=== PATIENT | female | born 1970 ===

== ENCOUNTER 2020-06-08 14:04 | Emergency (ER) | payer MEDICAID, OTHER ==
[~2020-06-08] VITALS: Ht 149.9 cm; Wt 83.5 kg
[2020-06-08 14:10] VITALS: BP 177/84
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
== END 2020-06-08 15:50 | disposition home or self-care (01) ==
LOC: ED 15:40
DX: R09.89 Other specified symptoms and signs involving the circulatory and respiratory systems (principal)
CPT/HCPCS: 36415; 87635; 99281; 99283

== ENCOUNTER 2020-06-08 18:01 | Emergency (ER) | payer OTHER ==
[~2020-06-08] VITALS: Ht 149.9 cm; Wt 83.6 kg
[2020-06-08 18:19] VITALS: BP 164/83
== END 2020-06-08 20:23 | disposition left against medical advice (07) ==
LOC: ED 20:10
DX: R51 Headache (principal); Y08.89XA Assault by other specified means, initial encounter; Y93.89 Activity, other specified; Y92.89 Other specified places as the place of occurrence of the external cause; Y99.8 Other external cause status
CPT/HCPCS: 99281

== ENCOUNTER 2020-06-08 23:39 | Emergency (ER) | payer OTHER ==
[~2020-06-08] VITALS: Ht 149.9 cm; Wt 83.4 kg
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
[2020-06-09] MEDS ORDERED: KETOROLAC 30 MG/1 ML ONE (00:19)
[2020-06-09] MEDS ORDERED: ACETAMINOPHEN 500 MG TABLET ONE (00:20)
[2020-06-09] MEDS ORDERED: KETOROLAC 30 MG/1 ML IM ONE (00:30)
[2020-06-09] MEDS ORDERED: ACETAMINOPHEN 325 MG TABLET PO ONE (00:30)
--- NOTE | 2020-06-09 00:49 | NUR ---
PT CONNECTED TO BP AND O2 MONITORS.
[2020-06-09 01:42] VITALS: BP 124/71
== END 2020-06-09 01:46 | disposition home or self-care (01) ==
LOC: ED 06-09 00:44
DX: S09.90XA Unspecified injury of head, initial encounter (principal); Y08.89XA Assault by other specified means, initial encounter; Y93.89 Activity, other specified; Y92.098 Other place in other non-institutional residence as the place of occurrence of the external cause; Y99.8 Other external cause status
CPT/HCPCS: 70450; 96372; 99284; J1885

== ENCOUNTER 2020-06-11 16:05 | Emergency (ER) | payer OTHER ==
[~2020-06-11] VITALS: Ht 149.9 cm; Wt 81.9 kg
[2020-06-11 16:32] VITALS: BP 164/99
--- NOTE | 2020-06-11 18:13 | NUR ---
ANDREA RN: ASSUMED CARE FOR DISCHARGE ONLY. EXPLAINED TO SELF ISOLATED UNITL RECEIVES A CALL FROM [facility] Patient/Caregiver given discharge instructions and they have confirmed that they understand the instructions. Patient ambulatory with steady gait.
== END 2020-06-11 18:27 | disposition home or self-care (01) ==
LOC: ED 18:19
DX: G43.909 Migraine, unspecified, not intractable, without status migrainosus (principal); Z03.818 Encounter for observation for suspected exposure to other biological agents ruled out
CPT/HCPCS: 36415; 87635; 99283

== ENCOUNTER 2020-09-26 15:52 | Emergency (ER) | payer OTHER ==
[~2020-09-26] VITALS: Ht 149.9 cm; Wt 82.3 kg
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
--- NOTE | 2020-09-26 17:44 | NUR ---
Patient given discharge instructions and they have confirmed that they understand the instructions. Patient ambulatory with steady gait.
[2020-09-26 17:45] VITALS: BP 131/79
== END 2020-09-26 17:47 | disposition home or self-care (01) ==
LOC: ED 17:02
DX: T78.40XA Allergy, unspecified, initial encounter (principal); M79.89 Other specified soft tissue disorders; J02.9 Acute pharyngitis, unspecified; G43.909 Migraine, unspecified, not intractable, without status migrainosus; X58.XXXA Exposure to other specified factors, initial encounter
CPT/HCPCS: 99283